=== PATIENT | male | born 1995 | race Caucasian/White ===

== ENCOUNTER 2016-09-26 13:56 | Emergency (ER) | payer BC, OTHER ==
[~2016-09-26] VITALS: Ht 177.8 cm; Wt 79.9 kg
[~2016-09-26 13:56] MED LIST: ALBU6.7H INH; AUGM875 PO; LORT5TAB PO; PULMICORT
[2016-09-26 14:00] VITALS: BP 110/55; PULSE 70; RESP 12; TEMP 98.1; O2SAT 98
--- NOTE | 2016-09-26 14:18 | PD ---
HPI Chief Complaint: Injury Time Seen by Provider: 14:15 Travel History International Travel<30 days: No Contact w/Intl Traveler<30days: No Traveled to known affect area: No History of Present Illness HPI 21-year-old male presents emergency department for evaluation of left ankle pain. Patient reports yesterday while playing basketball he twisted the left ankle causing immediate pain to the lateral aspect. He reports pain is increased since yesterday he now has difficulty with weightbearing. He reports the pain is constant, worse with weightbearing and movement, relieved with rest , nonradiating severity 4-10. He reports previous ankle sprains within this ankle. He denies numbness or tingling within the extremity. PFS Past Medical History Medical History: Denies Significant Hx Asthma: Yes Diminished Hearing: No Musculoskeletal: Yes (WRIST FRACTURE) Respiratory: Yes ( ASTHMA ) Immunizations Current: Yes Past Surgical History Other Surgery: Yes (nasal) Social History Alcohol Use: No Tobacco Use: No Substance Use: No Allergies-Medications (Allergen,Severity, Reaction): Coded Allergies: Ants (Verified Allergy, Severe, Anaphylaxis, 09/26/16) Bee Sting (Verified Allergy, Severe, Anaphylaxis, 09/26/16) Reported Meds & Prescriptions Reported Meds & Active Scripts Active No Active Prescriptions or Reported Medications Review of Systems Except as stated in HPI: all other systems reviewed are Neg Physical Exam Narrative GENERAL: Well-nourished, well-developed patient. SKIN: Focused skin assessment warm/dry. HEAD: Normocephalic. EYES: No scleral icterus. No injection or drainage. NECK: Supple, trachea midline. No JVD or lymphadenopathy. CARDIOVASCULAR: Regular rate and rhythm without murmurs, gallops, or rubs. RESPIRATORY: Breath sounds equal bilaterally. No accessory muscle use. GASTROINTESTINAL: Abdomen soft, non-tender, nondistended. MUSCULOSKELETAL: No cyanosis, or edema. Left ankle: Notable swelling to the lateral aspect. Tenderness over the lateral malleolus. No deformity. Normal motor and sensation within the foot. 2+ distal pulses. Brisk cap refill. BACK: Nontender without obvious deformity. No CVA tenderness. Data Data Last Documented VS Vital Signs Date Time Temp Pulse Resp B/P Pulse Ox O2 Delivery O2 Flow Rate FiO2 09/26/16 14:00 98.1 70 12 110/55 98 Orders Ankle, Complete ([id number]) (09/26/16 ) [facility] Medical Decision Making Medical Screen Exam Complete: Yes Emergency Medical Condition: Yes Differential Diagnosis Left ankle painsprain versus fracture Narrative Course 21-year-old male presents emergency department for evaluation of left ankle pain and swelling status post twisting injury while playing basketball yesterday. The extremity is neurovascular intact. There is no deformity. X- ray pending X-ray left ankle negative for fracture. Patient will be treated for ankle sprain with Abhijeet wrap, ankle stirrup and crutches. Instructed to use Motrin as needed for pain and swelling ice and elevate the extremity. Follow-up with primary care doctor. Patient agrees to plan Diagnosis Primary Impression: Ankle sprain Qualified Code: S93.402A - Sprain of left ankle, unspecified ligament, initial encounter Additional Instructions: With these records ankle stirrup and crutches until weightbearing as possible. Ice and elevate the family. Take [id number] Motrin as needed for pain and swelling. Follow-up with her primary care doctor for recheck. Scripts No Active Prescriptions or Reported Meds Disposition: 01 DISCHARGE HOME Condition: Stable Ivy Cross Sep 26, 2016 14:18
--- NOTE | 2016-09-26 14:51 | RADRPT ---
EXAM DATE/TIME: 09/26/2016 14:38 [facility] COMPARISON: No previous studies available for comparison. INDICATIONS : Left lateral ankle pain & swelling after landing on it wrong while playing basketball. MEDICAL HISTORY : Asthma. Left wrist fracture. SURGICAL HISTORY : None. ENCOUNTER: Initial ACUITY: 2 days PAIN SCORE: 6/10 LOCATION: Left lateral ankle FINDINGS: Soft tissue swelling at the lateral aspect of the ankle. The ankle mortise is approximated. No fractu res are seen. Normal bone density. CONCLUSION: Soft tissue swelling laterally. Valdez Luna MD on September 26, 2016 at 14:49 Board Certified Radiologist. This report was verified electronically.
== END 2016-09-26 15:28 | disposition home or self-care (01) ==
LOC: PHEFT 13:56
DX: S93.402A Sprain of unspecified ligament of left ankle, initial encounter (principal); X50.0XXA Overexertion from strenuous movement or load, initial encounter; Y93.67 Activity, basketball; Y92.9 Unspecified place or not applicable
CPT/HCPCS: 73610; 99283; E0113